=== PATIENT | female | born 1965 | race Caucasian/White ===

== ENCOUNTER → 2016-12-31 | Day surgery (SDC) | payer BC ==
--- NOTE | 2016-12-31 13:18 | USB ---
EXAMINATION TYPE: US discontinued breast core RT HISTORY: Abnormal mammogram and ultrasound from outside hospital COMPARISON: Outside ultrasound and mammogram dated 12/04/2016 FINDINGS: Preliminary ultrasound demonstrates 2 simple appearing cysts which appear anechoic and demo nstrate through transmission. Correspond to the area of mammographic abnormality. Case discussed with the patient who wished to def er biopsy given the cysts appear simple. IMPRESSION: Probably benign finding (BI-RADS Category 3). 1. Preliminary ultrasound demonstrates anechoic structures with through-transmission suggestive of si mple cysts. Precautionary 6 month follow-up of the right breast recommended.
== END ==
LOC: RADUSWWP 11:36
PROVIDERS: ATTEND Surgery
DX: Z53.29 Procedure and treatment not carried out because of patient's decision for other reasons (principal); R92.8 Other abnormal and inconclusive findings on diagnostic imaging of breast; Z88.0 Allergy status to penicillin